=== PATIENT | female | born 1975 | race Caucasian/White ===

== ENCOUNTER → 2017-02-03 | Outpatient (CLI) | payer OTHER ==
--- NOTE | 2017-02-09 18:19 | SLEEPCENT ---
DATE OF PROCEDURE: 02/03/2017 REFERRING PROVIDER: ANDRA Bell INTERPRETATION: Nocturnal polysomnography was performed for the evaluation of sleep apnea syndrome symptoms consisting of excessive daytime sleepiness, insomnia, snoring, observed apnea, gasping respirations, morning headaches and nonrestorative sleep. A total of 7 hours and 42 minutes of data was reviewed with 406.5 minutes of sleep identified. Sleep latency was 26 minutes. Rapid eye movement (REM) latency was 143 minutes. All stages of sleep were observed. Sleep efficiency was 89%. EKG showed normal sinus rhythm with an average heart rate of 66 beats per minute. Speeding and slowing was noted surrounding some respiratory events. No epileptiform discharge observed. There were 76 respiratory events identified of 10 seconds in duration or longer for an apnea-hypopnea index (AHI) of 11.2. Respiratory event related arousal (RERA) index was 1.9 giving a total respiratory disturbance index (RDI) of 13.1. In reviewing the raw data there were several unscored events that would push this index slightly higher, possibly into the moderate range. Mean oxygen saturation for this study was 93% with a minimum recorded value of 82%. Arousal index was 12.1. Periodic limb movement index was 9.4. IMPRESSION: Obstructive sleep apnea, mild-moderate. Periodic limb movement, mild. RECOMMENDATIONS: Recommend patient return to the sleep disorder center for the determination of pressure therapy. Pending this intervention, alcohol and sedative usage should be avoided and care should be taken when operating motor vehicles. MTDD
== END ==
LOC: M SLEEP 19:44
PROVIDERS: ATTEND Internal Medicine Pulmonary Disease
DX: G47.30 Sleep apnea, unspecified (principal)

== ENCOUNTER → 2017-02-22 | Outpatient (CLI) | payer OTHER ==
--- NOTE | 2017-03-03 07:47 | SLEEPCENT ---
DATE OF STUDY: 02/22/2017 REFERRING PROVIDER: ANDRA Rebolledo INTERPRETATION: Nocturnal polysomnography was performed for the determination of pressure therapy in this patient with mild/moderate obstructive sleep apnea with an apnea-hypopnea index (AHI) of 11.2 and a respiratory disturbance index (RDI) of 13.1 who had symptoms of excessive daytime sleepiness, insomnia, observed apnea, gasping respiration, morning headaches and nonrestorative sleep. A total of 6 hours and 59 minutes of data was reviewed for the entire titration with 366 minutes of sleep identified. Sleep latency was 30.5 minutes. Rapid eye movement (REM) latency was 77.5 minutes. No slow wave sleep was identified. Electrocardiogram (EKG) showed normal sinus rhythm with an average heart rate of 60 beats per minute. No epileptiform discharge observed. The patient had been fit with a James-Paykel Brevida nasal mask of small size, 4 cm of water pressure was applied to the circuit and the lights were dimmed. CPAP initially begun at 4 cm of water pressure and taken to a high of 6 cm of water pressure. However, she appeared to do best on 5 cm of water pressure. On that pressure, AHI was 0.3 as was her CORTEZ. Periodic limb movement index was 1.3. Oxygen saturations were in the 90th percentile. Supine REM sleep was seen on this pressure with a reasonably good waveform. IMPRESSION: 1. Obstructive sleep apnea, mild/moderate, reasonably palliated on CPAP at 5 cm of water pressure including in supine REM sleep. 2. Periodic limb movements, mild at baseline, and not observed on CPAP therapy. RECOMMENDATIONS: Recommend continuation with CPAP therapy at the above pressure via a small James-Paykel Brevida nasal mask or mask of her preference. Clinical correlation will be necessary to ensure eradication of symptoms.
== END ==
LOC: M SLEEP 19:49
PROVIDERS: ATTEND Internal Medicine Pulmonary Disease
DX: G47.33 Obstructive sleep apnea (adult) (pediatric) (principal)

== ENCOUNTER → 2017-11-30 | Outpatient (CLI) | payer OTHER ==
[~2017-11-30] MED LIST: METHACHOLINE KIT (J7674) INH
== END ==
LOC: M CARPUL 12:35
DX: R06.02 Shortness of breath (principal)
CPT/HCPCS: J7674

== ENCOUNTER → 2018-06-07 | Outpatient (CLI) | payer OTHER ==
--- NOTE | 2018-06-07 17:37 | REPMRS ---
Patient History The patient states she has not had a clinical breast exam in over a year. Patient is nulliparous. Family history of colorectal cancer at age 69 in father, skin cancer in mother, breast cancer at age 70 in maternal aunt, breast cancer at age 80 in maternal grandmother. Taking unspecified hormones for 30 years. Digital Mammo Screening Bilat: June 07, 2018 - Exam #: [id number] Bilateral CC and MLO view(s) were taken. Technologist: Shey Gutierres, Technologist FINDINGS: The breast tissue is heterogeneously dense. This may lower the sensitivity of mammography. There is no evidence of dominant mass, architectural distortion, or clustered microcalcification typical of malignancy. Assessment: BI-RADS/ACR category 1 mammogram. Negative. Recommendation Breast MRI of both breasts in 6 months. Routine screening mammogram of both breasts in 1 year (for women over age 40). This patient's Lifetime Breast Cancer RIsk is estimated at 23.9 %. Annual screening Breast MRI scanniing is recommended for patient's whose lifetime risk assessment is over 20%. This mammogram was interpreted with the aid of an FDA-approved computer-aided dectection system. Electronically Signed By: Dillon Limon MD 06/07/18 [id number]
== END ==
LOC: M RAD 12:58
PROVIDERS: ATTEND Internal Medicine
DX: Z12.31 Encounter for screening mammogram for malignant neoplasm of breast (principal); Z80.0 Family history of malignant neoplasm of digestive organs; Z80.3 Family history of malignant neoplasm of breast

== ENCOUNTER → 2019-06-28 | Outpatient (CLI) | payer OTHER ==
--- NOTE | 2019-06-28 15:11 | REPMRS ---
Patient History The patient states she has not had a clinical breast exam in over a year. Family history of colorectal cancer at age 69 in father, unknown cancer in mother, breast cancer at age 70 in maternal aunt, breast cancer at age 80 in maternal grandmother. Taking unspecified hormones for 30 years. Digital Mammo Screening Bilat: June 28, 2019 - Exam #: [id number] Bilateral CC and MLO view(s) were taken. Technologist: Elizabeth Roe, Technologist Prior study comparison: June 07, 2018, bilateral digital mammo screening bilat performed at [facility]. FINDINGS: The breast tissue is heterogeneously dense. This may lower the sensitivity of mammography. There is a moderate amount of heterogeneously dense fibroglandular tissue which is fairly symmetric. There is no interval development of dominant mass, architectural distortion, or grouped microcalcification typical of malignancy. There has been no change in the appearance of the mammogram from the prior studies. 3-D tomosynthesis shows no additional findings. Assessment: BI-RADS/ACR category 1 mammogram. Negative Mammogram. Recommendation Breast MRI of both breasts in 6 months. Routine screening mammogram of both breasts in 1 year (for women over age 40). This patient's Lifetime Breast Cancer RIsk is estimated at 23.7 %. Annual screening Breast MRI scanniing is recommended for patient's whose lifetime risk assessment is over 20%. This mammogram was interpreted with the aid of an FDA-approved computer-aided dectection system. Electronically Signed By: Dillon Limon MD 06/28/19 [id number]
== END ==
LOC: M RAD 14:01
PROVIDERS: ATTEND Family Medicine
DX: Z12.31 Encounter for screening mammogram for malignant neoplasm of breast (principal)

== ENCOUNTER → 2020-08-14 | Outpatient (CLI) | payer OTHER ==
--- NOTE | 2020-08-14 14:38 | REPMRS ---
Patient History The patient states she has not had a clinical breast exam in over a year. Patient is nulliparous. Family history of colorectal cancer at age 69 in father, unknown cancer in mother, breast cancer at age 70 in maternal aunt, breast cancer at age 80 in maternal grandmother. Taking unspecified hormones for 30 years. Digital Woman Screen Mammo: August 14, 2020 - Exam #: [id number] Bilateral CC and MLO view(s) were taken. Technologist: Ashley Yan, Technologist Prior study comparison: June 28, 2019, bilateral digital mammo screening bilat, performed at [facility]. June 07, 2018, bilateral digital mammo screening bilat, performed at [facility]. FINDINGS: The breast tissue is heterogeneously dense. This may lower the sensitivity of mammography. The Volpara volumetric breast density category is: C. There is a moderate amount of heterogeneously dense fibroglandular tissue which is fairly symmetric. There is no interval development of dominant mass, architectural distortion, or grouped microcalcification typical of malignancy. There has been no change in the appearance of the mammogram from the prior studies. 3-D tomosynthesis shows no additional findings. Assessment: BI-RADS/ACR category 1 mammogram. Negative Mammogram. Recommendation Breast MRI of both breasts in 6 months. Routine screening mammogram of both breasts in 1 year (for women over age 40). This patient's [facility] Lifetime Breast Cancer RIsk is estimated at 23.8 %. Annual screening Breast MRI scanniing is recommended for patient's whose lifetime risk assessment is over 20%. This mammogram was interpreted with the aid of an FDA-approved computer-aided dectection system. Electronically Signed By: Dillon Limon MD 08/14/20 1372
== END ==
LOC: M WHC 13:00
PROVIDERS: ATTEND Student in an Organized Health Care Education/Training Program
DX: Z12.31 Encounter for screening mammogram for malignant neoplasm of breast (principal); Z80.0 Family history of malignant neoplasm of digestive organs; Z79.899 Other long term (current) drug therapy

== ENCOUNTER → 2021-12-18 | Outpatient (CLI) | payer OTHER | LOC: M WHC 10:50 | PROVIDERS: ATTEND Student in an Organized Health Care Education/Training Program | DX: Z12.31 Encounter for screening mammogram for malignant neoplasm of breast (principal) ==

== ENCOUNTER → 2022-08-24 | Outpatient (CLI) | payer OTHER ==
[2022-08-24 19:15] LABS: CALCIUM LEVEL 9.9 MG/DL (8.5-10.1); CREATININE FOR GFR 1.34 MG/DL (0.55-1.30); GLOMERULAR FILTRATION RATE 45.7 (>58); POTASSIUM SERUM 3.7 MMOL/L (3.5-5.1)
== END ==
LOC: M LAB 16:24
PROVIDERS: ATTEND Nurse Practitioner Women's Health
DX: R92.2 Inconclusive mammogram (principal)

== ENCOUNTER → 2022-08-27 | Outpatient (CLI) | payer OTHER ==
[~2022-08-27] MED LIST changes: -METHACHOLINE KIT (J7674) INH; +PROHANCE 279.3MG/ML 5ML VIAL ONE
== END ==
LOC: M PLAIMG 13:52
PROVIDERS: ATTEND Nurse Practitioner Women's Health
DX: R92.2 Inconclusive mammogram (principal); Z80.3 Family history of malignant neoplasm of breast; Z12.39 Encounter for other screening for malignant neoplasm of breast
CPT/HCPCS: A9576; C8908

== ENCOUNTER → 2023-01-14 | Outpatient (CLI) | payer OTHER | LOC: M WHC 13:16 | PROVIDERS: ATTEND Nurse Practitioner Family | DX: T83.32XA Displacement of intrauterine contraceptive device, initial encounter (principal) ==

== ENCOUNTER 2024-07-21 13:22 | Emergency (ER) | payer OTHER ==
[~2024-07-21] VITALS: Ht 175.3 cm; Wt 96.1 kg
[2024-07-21 14:43] LABS: BASO % 0.7 % (0.0-1.0); EOS # 0.1 10^3/uL (0.0-0.5); EOS % 2.2 % (0.0-3.0); HEMATOCRIT 45.1 % (36.0-47.0); HEMOGLOBIN 15.4 g/dl (12.0-15.5); LYMPH # 0.8 10^3/uL (1.5-5.0); LYMPH % 17.7 % (24.0-44.0); MEAN CORPUSCULAR HEMOGLOBIN 29.7 pg (27.0-33.0); MEAN CORPUSCULAR HGB CONC 34.1 g/dl (32.0-36.5); MEAN CORPUSCULAR VOLUME 86.9 fl (80.0-96.0); MONO # 0.4 10^3/uL (0.0-0.8); NEUTROPHILS # 3.2 10^3/uL (1.5-8.5); NEUTROPHILS % 71.2 % (36.0-66.0); PLATELET COUNT, AUTOMATED 166 10^3/uL (150-450); RED BLOOD COUNT 5.19 10^6/uL (4.00-5.40); WHITE BLOOD COUNT 4.5 10^3/uL (4.0-10.0)
[2024-07-21 14:57] LABS: INR 1.05
[2024-07-21 15:19] LABS: KETONE, URINE AUTO RFX NEGATIVE (NEGATIVE); LEUKOCYTE ESTERASE UR AUTO RFX NEGATIVE (NEGATIVE); NITRITE, URINE AUTO RFX NEGATIVE (NEGATIVE); RBC, URINE AUTO RFX 1 /HPF (0-3); SQUAM EPITHELIAL CELL UR AURFX 0 /HPF (0-6); WBC, URINE AUTO RFX 4 /HPF (0-3)
[2024-07-21] MEDS: NS 500 ML IV ONE (15:34)
[2024-07-21] MEDS: MORPHINE 4 MG/ML 1ML VIAL IV ONE (15:34)
[2024-07-21 16:15] LABS: CALCIUM LEVEL 9.4 MG/DL (8.5-10.1); CREATININE FOR GFR 2.39 MG/DL (0.55-1.30); GLOMERULAR FILTRATION RATE 23.2 (>58)
[2024-07-21 17:28] VITALS: BP 125/73; TEMP 97.7; O2SAT 99
== END 2024-07-21 17:37 | disposition home or self-care (01) ==
LOC: M ED 13:22
DX: R10.9 Unspecified abdominal pain (principal); N17.9 Acute kidney failure, unspecified; I25.2 Old myocardial infarction; E03.9 Hypothyroidism, unspecified; E11.9 Type 2 diabetes mellitus without complications; J45.909 Unspecified asthma, uncomplicated; F10.10 Alcohol abuse, uncomplicated; Z88.8 Allergy status to other drugs, medicaments and biological substances

== ENCOUNTER → 2024-08-01 | Outpatient (CLI) | payer OTHER | LOC: M WHC 13:19 | PROVIDERS: ATTEND Internal Medicine | DX: Z12.31 Encounter for screening mammogram for malignant neoplasm of breast (principal) ==

== ENCOUNTER → 2025-04-17 | Outpatient (CLI) | payer OTHER ==
[~2025-04-17] MED LIST changes: +PROHANCE 279.3MG/ML 15ML VIAL As Ordered ONE; +PROHANCE 279.3MG/ML 5ML VIAL As Ordered ONE; -PROHANCE 279.3MG/ML 5ML VIAL ONE
== END ==
LOC: M RAD 15:16
PROVIDERS: ATTEND Family Medicine
DX: E11.621 Type 2 diabetes mellitus with foot ulcer (principal); L97.419 Non-pressure chronic ulcer of right heel and midfoot with unspecified severity; Z89.411 Acquired absence of right great toe; Z89.421 Acquired absence of other right toe(s); Z79.4 Long term (current) use of insulin
CPT/HCPCS: 73720; A9579